=== PATIENT | female | born 1990 | race African-American/Black ===

== ENCOUNTER 2022-02-24 09:13 | Emergency (ER) | payer MEDICAID ==
[~2022-02-24] VITALS: Ht 160 cm; Wt 95.3 kg
[2022-02-24 09:23] VITALS: BP 176/123
--- NOTE | 2022-02-24 10:20 | NUR ---
PT SEEN BY MD/PA AT BEDSIDE
--- NOTE | 2022-02-24 10:29 | NUR ---
RAPID FLU AND COVID SWABS OBTAINED AND SENT TO LAB
[2022-02-24] MEDS ORDERED: AMOX500C2 PO (10:30)
[2022-02-24] MEDS ORDERED: IBUP-1955 PO (10:30)
--- NOTE | 2022-02-24 10:39 | NUR ---
Patient discharged to home in stable condition. Written and verbal after care instructions given. Patient verbalizes understanding of instruction.
== END 2022-02-24 10:42 | disposition home or self-care (01) ==
LOC: ER 09:35
DX: H66.91 Otitis media, unspecified, right ear (principal); J06.9 Acute upper respiratory infection, unspecified; Z20.822 Contact with and (suspected) exposure to COVID-19; F31.9 Bipolar disorder, unspecified
CPT/HCPCS: 99283; 87426; 87804 ×2; C9803